=== PATIENT | female | born 1970 | race Caucasian/White ===

== ENCOUNTER 2016-10-04 20:31 | Emergency (ER) | payer MEDICAID ==
[~2016-10-04] VITALS: Ht 167.6 cm; Wt 134.3 kg
[2016-10-04] MEDS ORDERED: SODIUM CHLORIDE FLUSH 10ML SYR IVF ONE (21:00)
[2016-10-04] MEDS ORDERED: ASPIRIN 81 MG TABLET CHEW PO ONE (21:00)
[2016-10-04 21:37] LABS: BLOOD UREA NITROGEN 10 mg/dL (7-18)
[2016-10-04 21:39] LABS: IS PT STATUS REG ER OR PRE ER? YES
[2016-10-04] MEDS ORDERED: ASPIRIN 81 MG TABLET CHEW ONE (22:11)
[2016-10-04 23:00] VITALS: BP 134/60
== END 2016-10-04 23:19 | disposition home or self-care (01) ==
LOC: ED 21:02
DX: M54.12 Radiculopathy, cervical region (principal); R07.89 Other chest pain
CPT/HCPCS: 36415; 71010; 80048; 82040; 83880; 84484; 85025; 93005; 93970; 99285

== ENCOUNTER 2016-11-19 16:17 | Emergency (ER) | payer MEDICAID ==
[~2016-11-19] VITALS: Ht 167.6 cm; Wt 122.6 kg
[2016-11-19] MEDS ORDERED: SODIUM CHLORIDE 0.9% 1,000 ML IV ONE (16:51)
[2016-11-19] MEDS ORDERED: ONDANSETRON 2MG/ML, 2ML IVPush ONE (17:00)
[2016-11-19] MEDS ORDERED: LORazepam 2 MG/ML, 1ML IVPush ONE (17:00)
[2016-11-19] MEDS ORDERED: SODIUM CHLORIDE FLUSH 10ML SYR IVF ONE (17:00)
[2016-11-19] MEDS ORDERED: ONDANSETRON 2MG/ML, 2ML ONE (17:10)
[2016-11-19] MEDS ORDERED: LORazepam 2 MG/ML, 1ML ONE (17:11)
[2016-11-19 17:23] LABS: HEMATOCRIT 43.9 % (34.6-47.8); HEMOGLOBIN 14.5 g/dL (11.7-16.4); WHITE BLOOD COUNT 9.6 x10^3/uL (3.4-10)
[2016-11-19 17:34] LABS: BLOOD UREA NITROGEN 15 mg/dL (7-18)
[2016-11-19 18:40] VITALS: BP 131/57
== END 2016-11-19 18:43 | disposition home or self-care (01) ==
LOC: ED 16:22
DX: G43.909 Migraine, unspecified, not intractable, without status migrainosus (principal); E66.01 Morbid (severe) obesity due to excess calories; F41.9 Anxiety disorder, unspecified; Z88.5 Allergy status to narcotic agent
CPT/HCPCS: 36415; 70450; 80048; 82040; 85025; 96361; 96374; 96375; 99285; J2060; J2405; J7030

== ENCOUNTER 2016-12-26 00:14 | Emergency (ER) | payer MEDICAID ==
[~2016-12-26] VITALS: Ht 167.6 cm; Wt 125.0 kg
[2016-12-26 00:16] VITALS: BP 124/69
[2016-12-26 03:02] LABS: HEMATOCRIT 44.7 % (34.6-47.8); HEMOGLOBIN 14.7 g/dL (11.7-16.4); WHITE BLOOD COUNT 4.8 x10^3/uL (3.4-10)
[2016-12-26 03:13] LABS: BLOOD UREA NITROGEN 11 mg/dL (7-18)
[2016-12-26 03:18] LABS: IS PT STATUS REG ER OR PRE ER? YES
== END 2016-12-26 03:54 | disposition home or self-care (01) ==
LOC: ED 03:49
DX: J20.8 Acute bronchitis due to other specified organisms (principal); R06.00 Dyspnea, unspecified; E66.01 Morbid (severe) obesity due to excess calories; Z90.49 Acquired absence of other specified parts of digestive tract
CPT/HCPCS: 36415; 71020; 80048; 83880; 84484; 85025; 93005; 99285

== ENCOUNTER 2017-06-07 13:55 | Emergency (ER) | payer MEDICAID ==
[~2017-06-07] VITALS: Ht 167.6 cm; Wt 126.0 kg
[2017-06-07 14:01] VITALS: BP 120/74
[2017-06-07] MEDS ORDERED: IBUPROFEN 800 MG TABLET PO STA (15:44)
[2017-06-07] MEDS ORDERED: IBUPROFEN 200 MG TABLET ONE (16:07)
== END 2017-06-07 16:14 | disposition home or self-care (01) ==
LOC: ED 15:45
DX: S86.812A Strain of other muscle(s) and tendon(s) at lower leg level, left leg, initial encounter (principal); F32.9 Major depressive disorder, single episode, unspecified; F41.9 Anxiety disorder, unspecified; K52.9 Noninfective gastroenteritis and colitis, unspecified; Z90.49 Acquired absence of other specified parts of digestive tract; Z98.51 Tubal ligation status; X58.XXXA Exposure to other specified factors, initial encounter; Y93.89 Activity, other specified; Y99.8 Other external cause status; Y92.89 Other specified places as the place of occurrence of the external cause
CPT/HCPCS: 99284

== ENCOUNTER 2017-09-03 09:00 | Emergency (ER) | payer MEDICAID ==
[~2017-09-03] VITALS: Ht 167.6 cm; Wt 128.8 kg
[2017-09-03 09:05] VITALS: BP 139/71
[2017-09-03] MEDS ORDERED: KETOROLAC 60 MG/2 ML IM ONE (10:00)
== END 2017-09-03 10:40 | disposition home or self-care (01) ==
LOC: ED 09:54
DX: R07.2 Precordial pain (principal); R07.89 Other chest pain
CPT/HCPCS: 71045; 93005; 96372; 99283; 99284

== ENCOUNTER 2018-03-27 09:10 | Emergency (ER) | payer MEDICAID ==
[~2018-03-27] VITALS: Ht 167.6 cm; Wt 122.7 kg
[2018-03-27] MEDS ORDERED: BENZONATATE 100 MG CAPSULE PO ONE (09:30)
[2018-03-27] MEDS ORDERED: BENZONATATE 100 MG CAPSULE ONE (09:47)
[2018-03-27 09:51] VITALS: BP 138/60
== END 2018-03-27 10:54 | disposition home or self-care (01) ==
LOC: ED 10:28
DX: J20.9 Acute bronchitis, unspecified (principal); B96.89 Other specified bacterial agents as the cause of diseases classified elsewhere; F17.200 Nicotine dependence, unspecified, uncomplicated; G43.909 Migraine, unspecified, not intractable, without status migrainosus; E66.01 Morbid (severe) obesity due to excess calories; Z68.41 Body mass index [BMI] 40.0-44.9, adult
CPT/HCPCS: 71046; 99283

== ENCOUNTER 2018-03-31 16:16 | Emergency (ER) | payer MEDICAID ==
[~2018-03-31] VITALS: Ht 167.6 cm; Wt 136.5 kg
[2018-03-31 16:25] VITALS: BP 115/68
--- NOTE | 2018-03-31 17:02 | NUR ---
Patient given discharge instructions and they have confirmed that they understand the instructions. Patient ambulatory with steady gait.
== END 2018-03-31 17:04 | disposition home or self-care (01) ==
LOC: ED 17:03
DX: J15.9 Unspecified bacterial pneumonia (principal); J06.9 Acute upper respiratory infection, unspecified; Z76.0 Encounter for issue of repeat prescription; F32.9 Major depressive disorder, single episode, unspecified; F17.200 Nicotine dependence, unspecified, uncomplicated; Z90.49 Acquired absence of other specified parts of digestive tract
CPT/HCPCS: 71046; 99283

== ENCOUNTER 2018-05-27 15:29 | Emergency (ER) | payer MEDICAID ==
[~2018-05-27] VITALS: Ht 167.6 cm; Wt 122.0 kg
[2018-05-27 15:38] VITALS: BP 111/76
[2018-05-27] MEDS ORDERED: KETOROLAC 30 MG/1 ML IM ONE (16:00)
[2018-05-27] MEDS ORDERED: KETOROLAC 30 MG/1 ML ONE (16:01)
[2018-05-27] MEDS ORDERED: IBUPROFEN 800 MG TABLET ONE (16:06)
[2018-05-27 16:23] LABS: ALBUMIN 3.6 g/dL (3.4-5.0); ANION GAP 5 mmol/L (5-15); BASOPHILS # (AUTO) 0.04 x10^3/uL (0-0.1); BASOPHILS % (AUTO) 1 % (0-1); CALCIUM 9.2 mg/dL (8.5-10.1); CHLORIDE 107 mmol/L (98-107); EOSINOPHILS # (AUTO) 0.08 x10^3/uL (0-0.4); EOSINOPHILS % (AUTO) 1 % (1-7); LYMPHOCYTES # (AUTO) 1.54 x10^3/uL (1-3.4); LYMPHOCYTES % (AUTO) 16 % (22-44); MD NO; MEAN CORPUSCULAR HEMOGLOBIN 27.2 pg (27.0-34.8); MEAN CORPUSCULAR HGB CONC 32.6 g/dL (32.4-35.8); MEAN CORPUSCULAR VOLUME 83.3 fL (80-100); MEAN PLATELET VOLUME 7.2 fL (7.4-10.4); MONOCYTES # (AUTO) 0.27 x10^3/uL (0.2-0.8); MONOCYTES % (AUTO) 3 % (2-9); NEUTROPHILS # (AUTO) 7.64 x10^3/uL (1.8-6.8); NEUTROPHILS % (AUTO) 80 % (42-75); PLATELET COUNT 341 x10^3/uL (130-400); RED BLOOD COUNT 5.52 x10^6/uL (3.82-5.3); RED CELL DISTRIBUTION WIDTH 15.2 % (9.6-15.2)
[2018-05-27] MEDS ORDERED: IBUPROFEN 200 MG TABLET ONE (16:25)
[2018-05-27] MEDS ORDERED: IBUPROFEN 200 MG TABLET PO ONE (16:30)
== END 2018-05-27 17:47 | disposition home or self-care (01) ==
LOC: ED 16:33
DX: S43.421A Sprain of right rotator cuff capsule, initial encounter (principal); S73.102A Unspecified sprain of left hip, initial encounter; G43.909 Migraine, unspecified, not intractable, without status migrainosus; E66.01 Morbid (severe) obesity due to excess calories; Z68.41 Body mass index [BMI] 40.0-44.9, adult; W18.30XA Fall on same level, unspecified, initial encounter; Y93.89 Activity, other specified; Y92.89 Other specified places as the place of occurrence of the external cause; Y99.8 Other external cause status
CPT/HCPCS: 36415; 80048; 82040; 85025; 93005; 99284